=== PATIENT | female | born 1990 | race Hispanic/Latino ===

== ENCOUNTER 2019-06-20 18:08 | Emergency (ER) | payer SELFPAY ==
[2019-06-20] MEDS ORDERED: ACETAMINOPHEN 325 MG TAB ONE (18:33)
[2019-06-20] MEDS ORDERED: TETANUS/DIPHTHERIA TOXOID [ADULT] 0.5 ML VIAL IM ONE (18:33)
== END 2019-06-20 19:25 | disposition home or self-care (01) ==
LOC: EDH 18:08
DX: S40.871A Other superficial bite of right upper arm, initial encounter (principal); W54.0XXA Bitten by dog, initial encounter; Y93.89 Activity, other specified; Y92.098 Other place in other non-institutional residence as the place of occurrence of the external cause; Y99.8 Other external cause status
CPT/HCPCS: 90471; 90714